=== PATIENT | male | born 1950 | race Caucasian/White ===

== ENCOUNTER → 2018-08-30 | Outpatient (CLI) | payer OTHER ==
[~2018-08-30] VITALS: Ht 180.3 cm; Wt 117.9 kg
[~2018-08-30] MED LIST: AMARYL2 MG PO; ATORVASTATIN CA40 MG PO; DICLOFENAC SODI75 MG PO; LISINOPRIL10 MG PO; MS CONTIN15 MG PO; NABUMETONE 500500 M1 PO; NORCO 5-325 TA1 EACH PO; TOPROL XL25 MG PO; TRAMADOL 50 MG50 MG PO
--- NOTE | ~2018-08-30 | HPC ---
[facility] [place] [address] PAIN MANAGEMENT CONSULTATION Name: REBECCA LARA A Room #: [facility] [id number] Admission: 08/30/18 Attend Phys: Lane Mario DO Discharge: Date of : 49 Report #: [id number] THIS REPORT FOR: //name// CC: Lane Blount MD DATE OF SERVICE: 08/30/2018 REFERRING PHYSICIAN: Octavio Blount M.D. CHIEF COMPLAINT: Right hip pain. HISTORY OF PRESENT ILLNESS: As you know, the patient is a 67-year-old male who reports acute onset of right hip pain. He indicates pain began 08/15/2018. The patient states that he sought evaluation through his referring physician who sent the patient to trial a right intraarticular hip injection under fluoroscopic guidance. The patient believes that he overdid it the days prior to his pain intensification. He has been subsequently referred to our clinic to trial an intra-articular hip injection. The patient indicates today his pain is improved with lying down. It tends to only bother when walking and standing. There is no pain in the seated position. His pain begins in the hip, radiates to just above the knee. He was prescribed Tylenol No. 3 but has yet to initiate this medication. The patient states that he has a history of osteoarthritis and believes this may be the source of his current symptoms. The patient reports today his pain is continuous, describes the pain as burning, shooting, aching and sharp, places current pain score 10/10, daily average at 10/10, worst pain has been is 10/10. The patient states pain is exacerbated with walking, standing, improves with lying down and seated position. The patient has been referred to our service to try a right intraarticular hip injection under fluoroscopic guidance to determine if his symptoms will be improved. PAST MEDICAL HISTORY: 1. Diabetes mellitus type 2. 2. Coronary artery disease, status post coronary artery bypass grafting. 3. Degenerative joint disease. 4. Osteoarthritis. 5. Hypertension. 6. Dyslipidemia. PAST SURGICAL HISTORY: 1. Coronary artery bypass grafting. 2. Stapedectomy. [facility] [address] [place] [address] PAIN MANAGEMENT CONSULTATION Name: REBECCA LARA [id number] Admission: 08/30/18 Attend Phys: Lane Mario DO Discharge: Date of : 49 Report #: [id number] 3. Appendectomy. 4. Cataract surgery. SOCIAL HISTORY: The patient denies tobacco, alcohol, IV or illicit drug use. 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 He is not currently working, has been out of work force for about 3 years. He is not receiving workmen's compensation nor is he trying to obtain disability benefits. He is not in litigation in regards to pain. He is unaccompanied at today's visit. REVIEW OF SYSTEMS: Positive for night sweats, fatigue and weakness, wearing corrective eyewear, cataracts, hearing loss with tinnitus, shortness of breath, walking or lying flat, heart trouble, nocturia, sexual difficulty, numbness and tingling sensations, diabetes mellitus type 2, right hip pain. All other review of systems negative per 12-point review of systems other than those listed in history of present illness. PAIN SCORE: Pain impact score 48/70 indicating moderate to near severe daily activity interference due to pain. ALLERGIES: PENICILLIN and SHIITAKE MUSHROOMS. CURRENT MEDICATIONS: Tramadol 50 mg every 4 hours p.r.n. for pain, metoprolol 25 mg once a day, lisinopril 10 mg once a day and atorvastatin 40 mg per day. IMAGING DATA: There is no imaging available. PQRS: The patient has known osteoarthritis, bilateral hips and low back and also bilateral knees. He does not suffer from rheumatoid arthritis. He is placing current pain score 10/10. He is not a fall risk and has not had a fall in the last 3 months. He is not on blood thinners. He is treated for hypertension. He is not on any opioids. He has a moderate risk for opioid addiction. He places functional pain impact score 48/70, moderate to severe. PHYSICAL EXAMINATION: VITAL SIGNS: Blood pressure 118/69, pulse of 97 and respiratory rate 18 and unlabored. The patient is 94% on room air. Height 5 feet 11 inches tall, weight 260 pounds and BMI calculated 36.3. GENERAL: Well-developed, well-nourished and well-hydrated, class 2, morbidly obese 67-year-old male appearing his stated age, placing current pain score 10/10. HEENT: Normocephalic and atraumatic. Pupils equal, round and reactive to light. Extraocular muscles are intact. Sclerae nonicteric without injection. NEUROLOGICAL: Cranial nerves 2 through 12 grossly intact. Speech is fluent. The patient deemed a fair historian. LUNGS: Decreased breath sounds bilaterally, prolonged expiratory phase. CARDIOVASCULAR: Regular. No appreciable gallop. No rub. [address] [address] PAIN MANAGEMENT CONSULTATION Name: REBECCA LARA Room #: REG TIFFANIE Delgado#: [id number] Admission: 08/30/18 Attend Phys: Lane Mario DO Discharge: Date of : 49 Report #: [id number] ABDOMEN: Soft, obese and normoactive bowel sounds. EXTREMITIES: Show no clubbing, no cyanosis and no edema. MUSCULOSKELETAL: Lower extremity strength is weakened bilaterally, likely due to deconditioning. Muscle bulk and tone is symmetrical in comparing left lower extremity over right. Seated straight leg raising negative. Supine straight leg raising negative. Soo's test is positive on the right. Modified Gaenslen's positive for some axial low back pain, no radiation of symptoms. Gait is antalgic favoring right lower extremity over left. Stance is noted to exacerbate pain as is ambulating. Seated position, improves pain. ASSESSMENT: 1. Right hip pain. 2. Right hip osteoarthritis. PLAN: 1. The patient has been referred to our service by Dr. Murrell and Dr. Octavio Blount for evaluation for right hip pain. The patient does show hip path pain with provocation testing as well as standing and ambulating. This would fit with a hip pathology. He does not have any radicular component to his symptoms concerning a lumbar radiculopathy. The patient and I discussed today treatment options for right hip pain. The following treatment options were provided to the patient as options to treat his symptoms. We discussed physical therapy, stretching exercises and a concerted effort at weight loss. We discussed medication management changes adding a nonsteroidal anti-inflammatory to the list of medications to take on a consistent basis to reduce inflammation and pain from osteoarthritis. We discussed intraarticular hip injections for which the patient was referred to our clinic and ultimately surgical options. After reviewing the risks and benefits of all proposed treatment options, the patient chose to undergo right intra-articular hip injection under fluoroscopic guidance. The patient was advised risks and benefits of a right intraarticular hip injection. These risks include but are not necessarily limited to bleeding, bruising, infection, worsening pain, no relief of pain, also risk of temporary or permanent muscle weakness, temporary or permanent nerve damage, possible joint destruction and . The patient states understood and wished to proceed. 2. No medication changes made at today's visit. The patient will continue current medical therapy as previously prescribed. 3. We will see the patient back in followup visit on an as needed basis for the next in the series of right intraarticular hip injections. 4. We wish to thank the referring physicians for the opportunity to see this patient in consultation. We will keep you apprised of his response to treatment as we address the right hip pain. Again, we wish to thank you for the opportunity to see the patient in consultation. [place] [address] PAIN MANAGEMENT CONSULTATION Name: JANEREBECCA Huynh Room #: REG CLZia Delgado#: [id number] Admission: 08/30/18 Attend Phys: Lane Mario DO Discharge: Date of : 49 Report #: [id number] DESCRIPTION OF PROCEDURE: Right intra-articular hip injection under fluoroscopic guidance. After obtaining written consent, the patient was taken back to the fluoroscopy suite, placed in supine position. The image intensifier (C-arm) was then brought into position over the right hip and AP imaging was obtained. The area just overlying the right hip was then prepped and draped in aseptic fashion using chlorhexidine. A sterile marker was then used to fatoumata the site of the injection. A 27-gauge 1-1/4 inch needle was then used to anesthetize skin and subcutaneous tissue with 2 mL of 1% lidocaine. A 22-gauge 3-1/2 inch spinal needle with bent tip was advanced into the right hip under fluoroscopic guidance. Needle was advanced until reaching the proximal head of the right femur. After placing the needle on the proximal head of the femur, the needle was then retracted approximately 1 mm and aspiration noted to be negative for heme. After negative aspiration for the heme, 1 mL of Omnipaque was injected demonstrating an excellent right hip arthrogram. After negative aspiration for heme, 4 mL of a solution containing 1 mL 40 mg per mL, 40 mg total triamcinolone and 3 mL of bupivacaine 0.5% was injected slowly. Needle was retracted correction, flushed with 1 mL of 1% lidocaine and removed. Sterile bandage placed over injection site. The patient tolerated the procedure well, carefully escorted to the recovery room in stable condition. There were no new motor deficits present in the lower extremity after the patient completed the procedure. After meeting our discharge criteria, the patient discharged home. By: [id number] Mario DO /nt
[2018-08-30 12:37] VITALS: BP 118/69
== END | disposition home or self-care (01) ==
LOC: PAIN 07:16
DX: M16.11 Unilateral primary osteoarthritis, right hip (principal); E11.9 Type 2 diabetes mellitus without complications; I25.10 Atherosclerotic heart disease of native coronary artery without angina pectoris; I10 Essential (primary) hypertension; E78.5 Hyperlipidemia, unspecified; H91.90 Unspecified hearing loss, unspecified ear; M17.0 Bilateral primary osteoarthritis of knee; E66.01 Morbid (severe) obesity due to excess calories; Z95.1 Presence of aortocoronary bypass graft; Z98.890 Other specified postprocedural states; Z90.49 Acquired absence of other specified parts of digestive tract; Z98.49 Cataract extraction status, unspecified eye; Z88.0 Allergy status to penicillin; Z91.018 Allergy to other foods; Z79.899 Other long term (current) drug therapy; Z68.36 Body mass index [BMI] 36.0-36.9, adult; Z87.891 Personal history of nicotine dependence

== ENCOUNTER → 2019-08-29 | Outpatient (CLI) | payer OTHER ==
[~2019-08-29] VITALS: Ht 180.3 cm; Wt 114.9 kg
[~2019-08-29] MED LIST changes: +JARDIANCE25 MG PO
[2019-08-29 11:16] VITALS: BP 104/57
--- NOTE | 2019-08-29 11:46 | NUR ---
Pain Clinic Assessment: 1. History of Osteoarthritis: Left Upper Extremity History of Rheumatoid Arthritis: Not Applicable 2. Height: 5 ft. 11 in. 180.3 cm. Weight: 253.4 lb. oz. 114.942 kg. Patient's BMI: 35.4 3. Vital Signs: BP: 104/57 Pulse: 86 Resp: 16 Temp: 02 Sat: 97 ECG Mon: 4. Pain Intensity: 3 STILL, 5 WITH MOVEMENT. 5. Fall Risk: Dizziness: N Needs help standing or walking: N Fallen in the last 3 months: N Fall risk comments: 6. Patient on Blood Thinner: None 7. History of Hypertension: Y 8. Opioid Therapy greater than 6 weeks: Y Opiate Contract Signed: 9. Risk Assessment Tool Provided: 10. Functional Assessment Tool: 11. Recreational Drug Use: Never Drug Type: Tobacco Use: Former Smoker Tobacco Type: Amount or Packs/day: How Many Years: Alcohol Use: No Frequency: Quant:
--- NOTE | 2019-09-05 12:48 | HPC ---
[facility] [place] [address] PAIN MANAGEMENT CONSULTATION Name: REBECCA LARA Room #: REG [facility].#: [id number] Admission: 08/29/19 Attend Phys: Lane Mario DO Discharge: Date of : 49 Report #: [id number] THIS REPORT FOR: //name// CC: Lane Blount MD DATE OF SERVICE: 08/29/2019 CHIEF COMPLAINT: Left shoulder pain. HISTORY OF PRESENT ILLNESS: As you know, the patient is an unfortunate 68-year-old male who has returned today in followup visit with now acute onset of left shoulder pain. The patient states pain is exacerbated with activity. He has no cervical radicular component to his symptoms. There is no neck symptoms and no neurologic descriptors in regards to pain. His shoulder pain is located directly in the left shoulder and again exacerbated with lifting and abduction of the shoulder itself. He has returned today in followup visit per the request of the referring physician to undergo an intra-articular shoulder injection. He has not followed up with Dr. Blount who is part of an [facility] for evaluation of his left shoulder. He is placing his pain score today at around 5/10 with movement. ALLERGIES: PENICILLIN. CURRENT MEDICATIONS: Jardiance 25 mg once a day, tramadol 50 mg every 4 hours p.r.n. for pain, metoprolol 25 mg once a day, lisinopril 10 mg once a day, atorvastatin 40 mg per day. SOCIAL HISTORY: The patient denies tobacco use. He is a reformed smoker, quit in 2001. Denies IV or illicit drug use. Denies any chronic alcohol use. He is retired, unaccompanied today. IMAGING: There is no imaging available. PQRS: The patient has arthritic changes of the left shoulder and right shoulder as well as lumbar spine. No rheumatoid arthritis. He is placing pain intensity today 5/10 with movement. He is not a fall risk, has not had a fall in last 3 months, not on blood thinners. He is treated for hypertension. He is on chronic opioid like medication in the form of tramadol. He is placing pain impact at 25/70, [id number] interference of daily activities secondary to pain. PHYSICAL EXAMINATION: VITAL SIGNS: Blood pressure 104/57, pulse 86, respiratory rate 16 and [facility] [address] [place] [address] PAIN MANAGEMENT CONSULTATION Name: REBECCA LARA Room #: REG [facility] MNaye.#: [id number] Admission: 08/29/19 Attend Phys: Lane Mario DO Discharge: Date of : 49 Report #: [id number] unlabored. The patient is 97% on room air. Height 5 feet 11 inches tall, weight 253.4 pounds, and BMI calculated 35.4. GENERAL: Well-developed, well-nourished, well-hydrated exogenously obese 68-year-old male appearing stated age, pain is rated around 5/10. HEENT: Normocephalic, atraumatic. Pupils equal, round, reactive to light. EXTREMITIES: Show no clubbing, no cyanosis, and no edema. MUSCULOSKELETAL: Provocating testing of the left shoulder shows increased pain, classic for rotator cuff injury and intrinsic arthritic changes of the shoulder. There is no noted crepitus with movement, though pain is elicited with both active and passive range of motion. Cervical spine testing is negative for Spurling's. ASSESSMENT: 1. Left shoulder pain. 2. Left shoulder osteoarthritis. 3. Left shoulder rotator cuff injury. PLAN: 1. The patient has returned today in followup visit per the request of the referring physician Dr. Octavio Blount for intra-articular left shoulder injection to address left shoulder pain secondary to movement. The patient and I discussed at length that there were changes noted in his examination which was consistent with rotator cuff injury, specifically with provocating testing. There is no lindsay weakness and I am not concerned of full thickness tears, though I believe there are enough changes that the patient may ultimately have to look toward surgical options. He returns today to undergo left intra-articular shoulder injection under fluoroscopic guidance. 2. The patient has been advised risks and benefits of left intra-articular shoulder injections. These risks include but are not necessarily limited to bleeding, bruising, infection, worsening pain, no relief of pain, also risk of temporary or permanent muscle weakness, temporary or permanent nerve damage, possible joint destruction and . The patient states understood and wished to proceed. 3. No medication changes made at today's visit. The patient will continue current medical therapy as previously prescribed. 4. The patient will follow up with his orthopedic team in regards to his left shoulder issues. If symptoms do not improve with the intra-articular shoulder injection for further evaluation. DESCRIPTION OF PROCEDURE: Left intra-articular shoulder injection under fluoroscopic guidance. After obtaining written consent, the patient was taken back to fluoroscopy suite, placed in a supine position. Image intensifier (C-arm) was brought into position over the left shoulder and AP imaging was obtained. The area overlying the injection was then prepped and draped in aseptic fashion using [address] [address] PAIN MANAGEMENT CONSULTATION Name: REBECCA LARA Room #: REG CLZia Delgado#: [id number] Admission: 08/29/19 Attend Phys: Lane Mario DO Discharge: Date of : 49 Report #: [id number] chlorhexidine. A sterile marker was then placed over the injection site prior to the 25-gauge 1-1/2 inch needle was used to anesthetize skin and subcutaneous tissue with 2 mL of 1% lidocaine. A 25-gauge 2-inch needle was then advanced under fluoroscopic guidance into the left shoulder under direct visualization. Needle was advanced until reaching the proximal head of the humerus. Needle was then retracted approximately 1 mm and aspiration noted to be negative for heme. After negative aspiration for heme, 0.5 mL of Omnipaque was injected demonstrating excellent left shoulder arthrogram. After negative aspiration for heme, 3 mL of a solution containing 1 mL 40 mg per mL, 40 mg total triamcinolone along with 2 mL bupivacaine 0.5% injected slowly. Needle then retracted alf, flushed with 1 mL of 1% lidocaine, then removed. Sterile bandage placed over injection site. There were no new motor deficits present in the left upper extremity following procedure. The patient tolerated the procedure well, carefully escorted to recovery room in stable condition. No apparent complications. After meeting discharge criteria, the patient discharged home. <ELECTRONICALLY SIGNED> By: Lane Mario DO 09/05/[id number] Mario, DO /nt
== END | disposition home or self-care (01) ==
LOC: PAIN 06:56
DX: M25.512 Pain in left shoulder (principal); M19.012 Primary osteoarthritis, left shoulder; M75.102 Unspecified rotator cuff tear or rupture of left shoulder, not specified as traumatic; I10 Essential (primary) hypertension; Z98.890 Other specified postprocedural states; Z88.0 Allergy status to penicillin; Z79.899 Other long term (current) drug therapy; Z87.891 Personal history of nicotine dependence; Z79.891 Long term (current) use of opiate analgesic

== ENCOUNTER → 2020-06-05 | Outpatient (CLI) | payer OTHER ==
[~2020-06-05] VITALS: Ht 180.3 cm; Wt 104.3 kg
--- NOTE | ~2020-06-05 | HPC ---
[facility] [place] [address] PAIN MANAGEMENT CONSULTATION Name: REBECCA LARA Room #: REG TIFFANIE MajorYennyAnastacioYenny#: [id number] Admission: 06/05/20 Attend Phys: Lane Mario DO Discharge: Date of : 49 Report #: [id number] THIS REPORT FOR: cc: Fabian Murrell MD, Ralph R. MD Johnson, James E. DO ~ CC: Lane Blount MD DATE OF SERVICE: 06/05/2020 REFERRING PHYSICIAN: Fabian Murrell MD CHIEF COMPLAINT: Left shoulder pain. HISTORY OF PRESENT ILLNESS: As you know, the patient is a 69-year-old male, returning in followup visit with ongoing left shoulder pain. The patient had done very well with previous intra-articular shoulder injection provided at our visit of 08/29/2019. He reported improvement in symptoms lasting for months. Unfortunately, his symptoms have begun to return. He returns today for the next in the series of left intra-articular shoulder injections under fluoroscopic guidance. ALLERGIES: PENICILLIN. CURRENT MEDICATIONS: See chart. SOCIAL HISTORY: The patient denies tobacco use. He is a reformed smoker, quit in 2001. Denies IV or illicit drug use. Denies any chronic alcohol use. He is unaccompanied today. IMAGING: No new imaging available. PQRS: The patient has known arthritic changes of the bilateral shoulders and lumbar spine. No rheumatoid arthritis. Pain intensity is reported anywhere from 5-7/10. He is not a fall risk nor has he had a fall in last 3 months. He is not on blood thinners, but is treated for hypertension. He has a low opioid addiction potential. Pain impact today . PHYSICAL EXAMINATION: GENERAL: Well-developed, well-nourished, well-hydrated 69-year-old male appearing stated age. He is in no acute distress HEENT: Normocephalic, atraumatic. Pupils equal, round, reactive to light. Speech fluent. [facility] [address] [place] [address] PAIN MANAGEMENT CONSULTATION Name: REBECCA LARA [facility]: [facility] [id number] Admission: 06/05/20 Attend Phys: Lane Mario DO Discharge: Date of : 49 Report #: [id number] EXTREMITIES: Show no clubbing, no cyanosis, no edema. MUSCULOSKELETAL: Active and passive range of motion of left shoulder is met with increasing pain. There are signs for classic for rotator cuff injury and intrinsic arthritic changes of the shoulder. Spurling's test is negative. There is some crepitus noted with movement of the left shoulder today. ASSESSMENT: 1. Left shoulder pain. 2. Left shoulder osteoarthritis. 3. Rotator cuff injury of the left shoulder. PLAN: 1. The patient returns today in followup visit requesting to undergo left intra-articular shoulder injection under fluoroscopic guidance. He reported excellent benefit with the injection from our last visit in August. He states he has been doing very well, but unfortunately just recently had a recurrence of symptoms. He made today's appointment to undergo next in the series of injections. The patient has been advised risks and benefits of the procedure, states understood and wished to proceed. 2. No medication changes made at today's visit. The patient will continue current medical therapy as previously prescribed. 3. We will see the patient back in followup visit on an as needed basis for the next in the series of intra-articular shoulder injections. We are pleased to see the patient has done well. We will see him back on an as needed basis. PROCEDURE NOTE DESCRIPTION OF PROCEDURE: Left intra-articular shoulder injection under fluoroscopic guidance. After obtaining written consent, the patient was taken back to fluoroscopy suite, placed in a supine position. The image intensifier (C-arm) was brought into position over the left shoulder and AP imaging was obtained. The area overlying the injection was then prepped and draped in aseptic fashion using chlorhexidine. A sterile marker was then used to place a fatoumata over the injection site prior to the introduction of a 27-gauge 1-1/4 inch needle to anesthetize skin and subcutaneous tissue with 2 mL of 1% preservative-free lidocaine. A 25-gauge 2-inch needle was then advanced under fluoroscopic guidance into the left shoulder. Needle was advanced until reaching the proximal head of the humerus. Needle was then retracted approximately 1 mm and aspiration noted to be negative for heme. After this, negative aspiration for heme, 4 mL of a solution containing 1 mL 40 mg per mL, 40 mg total triamcinolone along with 3 mL bupivacaine 0.5% was injected slowly. Needle retracted approximately half way, flushed with 1 mL of 1% lidocaine and removed. Sterile bandage placed over [address] [address] PAIN MANAGEMENT CONSULTATION Name: REBECCA LARA Room #: REG TIFFANIE Delgado#: [id number] Admission: 06/05/20 Attend Phys: Lane Mario DO Discharge: Date of : 49 Report #: [id number] injection site. There were no new motor deficits present in the upper extremity following procedure. The patient tolerated procedure well, carefully escorted to recovery room in stable condition. No apparent complications. After meeting discharge criteria, the patient discharged home. By: [id number] Mario DO /nt
[2020-06-05 13:10] VITALS: BP 102/59
--- NOTE | 2020-06-05 13:23 | NUR ---
Pain Clinic Assessment: 1. History of Osteoarthritis: Left Upper Extremity History of Rheumatoid Arthritis: DENIES 2. Height: 5 ft. 11 in. 180.3 cm. Weight: 230.0 lb. oz. 104.328 kg. Patient's BMI: 32.1 3. Vital Signs: BP: 102/59 Pulse: 82 Resp: 18 Temp: 02 Sat: 96 ECG Mon: 4. Pain Intensity: 5 5. Fall Risk: Dizziness: N Needs help standing or walking: N Fallen in the last 3 months: N Fall risk comments: 6. Patient on Blood Thinner: None 7. History of Hypertension: Y 8. Opioid Therapy greater than 6 weeks: N Opiate Contract Signed: 9. Risk Assessment Tool Provided: 10. Functional Assessment Tool: 11. Recreational Drug Use: Never Drug Type: Tobacco Use: Former Smoker Tobacco Type: Amount or Packs/day: How Many Years: Alcohol Use: No Frequency: Quant:
== END | disposition home or self-care (01) ==
LOC: PAIN 07:02
PROVIDERS: ATTEND Anesthesiology Pain Medicine
DX: M25.552 Pain in left hip (principal); M16.12 Unilateral primary osteoarthritis, left hip; Z79.899 Other long term (current) drug therapy; Z88.8 Allergy status to other drugs, medicaments and biological substances

== ENCOUNTER → 2020-08-13 | Outpatient (CLI) | payer OTHER ==
[~2020-08-13] VITALS: Ht 180.3 cm; Wt 109.7 kg
--- NOTE | ~2020-08-13 | HPC ---
[facility] [address] [place] [address] PAIN MANAGEMENT CONSULTATION Name: REBECCA LARA Room #: REG [facility]#: [id number] Admission: 08/13/20 Attend Phys: Lane Mario DO Discharge: Date of : 48 Report #: [id number] CC: Lane Murrell DATE OF SERVICE: 08/13/2020 REFERRING PHYSICIAN: Dr. Fabian Murrell. CHIEF COMPLAINT: Right hip pain. HISTORY OF PRESENT ILLNESS: As you know, the patient is a 69-year-old male who returns today in followup visit, requesting to undergo right intraarticular hip injection under fluoroscopic guidance. The patient reports previous injection gave excellent benefit up to 60% improvement in overall pain till just recently where he has had a slow and progressive return of symptoms. He returns today in followup visit, requesting right intraarticular hip injection to address right hip osteoarthritic pain. The patient denies injury or trauma that may have led to symptom development. ALLERGIES: PENICILLIN. CURRENT MEDICATIONS: See chart. SOCIAL HISTORY: The patient denies tobacco use. He is a reformed smoker, quit in 2001. Denies IV or illicit drug use. Denies any chronic alcohol use. He is unaccompanied at today's visit. IMAGING: No new imaging available. PQRS: The patient has known arthritic changes of the bilateral shoulders and lumbar spine; bilateral hips, right greater than left. No rheumatoid arthritis. He is placing his pain intensity today at 4/10. He is not a fall risk nor has he had a fall in last 3 months. He is not on blood thinners, but is treated for hypertension. He is not on chronic opioids, has a low opiate addiction potential based on our assessment tool. Pain impact is 33 of 70, moderate interference of daily activities secondary to pain. PHYSICAL EXAMINATION: VITAL SIGNS: Blood pressure 100/57, pulse 83, respiratory rate 16 and unlabored. The patient is 98% on room air. Height 5 feet 11 inches tall, weight 241.8 pounds, BMI calculated 33.7. GENERAL: Well-developed, well-nourished, well-hydrated exogenously obese 69-year-old male, appearing stated age. Pain is rated today at 4/10. HEENT: Normocephalic, atraumatic. Pupils equal, round, and reactive. Speech fluent for the patient. EXTREMITIES: Show no clubbing, no cyanosis. No appreciable edema. MUSCULOSKELETAL: Lower extremity strength appears symmetrical. Some giveaway strength noted with hip flexion on the right when compared to left. This was due to pain generation. Standing from seated position exacerbates symptoms of right hip pain, negative left. Seated straight leg raising negative. Supine straight leg raising negative. Soo's test positive on the right. ASSESSMENT: 1. Right hip pain. 2. Right hip osteoarthritis. PLAN: 1. The patient returns today in followup visit, requesting to undergo right intraarticular hip injection under fluoroscopic guidance. He reported excellent benefit with previous right hip injection, which was performed on 08/30/2018. Unfortunately, his symptoms have begun to return. He has returned today to undergo right intraarticular hip injection under fluoroscopic guidance. He denies injury or trauma. The patient has been advised of risks and benefits of a right intraarticular hip injection. These risks include, but are not necessarily limited to bleeding, bruising, infection, worsening pain, no relief of pain, also risk of temporary or permanent muscle weakness, temporary or permanent nerve damage, possible paralysis, and . The patient states understood and wished to proceed. 2. No medication changes made at today's visit. The patient will continue current medical therapy as prior prescribed. 3. We will see the patient back in followup visit on an as needed basis for possible next in a series of right intraarticular hip injections. We are hopeful the patient will see good and prolonged benefit with this intraarticular hip injection as we have seen with the previous. DESCRIPTION OF PROCEDURE: Right intraarticular hip injection under fluoroscopic guidance. After obtaining written consent, the patient was taken back to fluoroscopy suite, placed in a supine position. The image intensifier (C-arm) was then brought into position over the right hip and AP imaging was obtained. The area overlying the site of injection was marked and then, sterilely prepped and draped with chlorhexidine. A 27-gauge 1-1/4-inch needle was then used to anesthetize skin and subcutaneous tissue with 2 mL of 1% lidocaine. A 22-gauge 3-1/2-inch spinal needle with bent tip was advanced into the right hip under fluoroscopic guidance. Needle was advanced until reaching the proximal head of the right femur. Needle was then retracted approximately 1 mm and aspiration was then noted to be negative for heme. After negative aspiration for heme, 1 mL of Omnipaque was injected, demonstrating an excellent right hip arthrogram. After negative aspiration for heme, 4 mL of a solution containing 1 mL 40 mg per mL, 40 mg total triamcinolone along with 3 mL of bupivacaine 0.5% was injected slowly. Needle was retracted long term, flushed with 1 mL of 1% lidocaine, and then removed. Sterile bandage was placed over injection site. There were no new motor deficits present in the lower extremities following procedure. The patient tolerated procedure well, carefully escorted to recovery room in stable condition. No apparent complications. After meeting discharge criteria, the patient discharged home. By: [id number] DO /nt
[2020-08-13 08:57] VITALS: BP 100/57
--- NOTE | 2020-08-13 09:07 | NUR ---
Pain Clinic Assessment: 1. History of Osteoarthritis: Left Upper Extremity History of Rheumatoid Arthritis: DENIES 2. Height: 5 ft. 11 in. 180.3 cm. Weight: 241.8 lb. oz. 109.680 kg. Patient's BMI: 33.7 3. Vital Signs: BP: 100/57 Pulse: 83 Resp: 16 Temp: 02 Sat: 98 ECG Mon: 4. Pain Intensity: 4 5. Fall Risk: Dizziness: N Needs help standing or walking: N Fallen in the last 3 months: N Fall risk comments: 6. Patient on Blood Thinner: None 7. History of Hypertension: Y 8. Opioid Therapy greater than 6 weeks: N Opiate Contract Signed: 9. Risk Assessment Tool Provided: 10. Functional Assessment Tool: 11. Recreational Drug Use: Never Drug Type: Tobacco Use: Former Smoker Tobacco Type: Amount or Packs/day: How Many Years: Alcohol Use: No Frequency: Quant:
== END | disposition home or self-care (01) ==
LOC: PAIN 06:47
PROVIDERS: ATTEND Anesthesiology Pain Medicine
DX: M25.551 Pain in right hip (principal); M16.11 Unilateral primary osteoarthritis, right hip; I10 Essential (primary) hypertension; M19.90 Unspecified osteoarthritis, unspecified site; Z98.890 Other specified postprocedural states; Z79.899 Other long term (current) drug therapy; Z87.891 Personal history of nicotine dependence; Z88.0 Allergy status to penicillin

== ENCOUNTER → 2021-03-18 | Outpatient (CLI) | payer OTHER ==
[~2021-03-18] VITALS: Ht 180.3 cm; Wt 106.9 kg
[2021-03-18 09:18] VITALS: BP 108/57
--- NOTE | 2021-03-18 09:26 | NUR ---
Pain Clinic Assessment: 1. History of Osteoarthritis: Left Upper Extremity History of Rheumatoid Arthritis: DENIES 2. Height: 5 ft. 11 in. 180.3 cm. Weight: 235.6 lb. oz. 106.868 kg. Patient's BMI: 32.9 3. Vital Signs: BP: 108/57 Pulse: 85 Resp: 16 Temp: 02 Sat: 97 ECG Mon: 4. Pain Intensity: 9 5. Fall Risk: Dizziness: N Needs help standing or walking: N Fallen in the last 3 months: N Fall risk comments: 6. Patient on Blood Thinner: None 7. History of Hypertension: Y 8. Opioid Therapy greater than 6 weeks: N Opiate Contract Signed: 9. Risk Assessment Tool Provided: 10. Functional Assessment Tool: 11. Recreational Drug Use: Never Drug Type: Tobacco Use: Former Smoker Tobacco Type: Amount or Packs/day: How Many Years: Alcohol Use: No Frequency: Quant:
--- NOTE | 2021-03-19 08:22 | HPC ---
[facility] [place] [address] PAIN MANAGEMENT CONSULTATION Name: REBECCA LARA Room #: REG TIFFANIE Sandy#: [id number] Admission: 03/18/21 Attend Phys: Lane Mario DO Discharge: Date of : 48 Report #: [id number] THIS REPORT FOR: cc: Fabian Murrell MD, Ralph R. MD Johnson, James E. DO ~ DOC #: [id number] Lane Mario DO DATE OF SERVICE: 03/18/2021 CHIEF COMPLAINT: Left shoulder pain. HISTORY OF PRESENT ILLNESS: As you know, the patient is a pleasant 70-year-old male with recurrence of left shoulder pain. He describes the pain as sharp, burning and aching places current pain score at 9/10. He reports good efficacy with the previous intraarticular shoulder injection near 100% improvement in overall pain. He returns today requesting next in the series of left shoulder injections in hopes of improving symptoms. He underwent an intraarticular hip injection at our last visit, which gave only transient improvement in symptoms. Unfortunately, his symptoms returned quite quickly. He is being evaluated for a total hip arthroplasty at this point. He returns to undergo a left intra-articular shoulder injection under fluoroscopic guidance in hopes of improving pain. He states pain is exacerbated with movement, improves with repositioning, and previous injections. ALLERGIES: PENICILLIN AND SHIITAKE MUSHROOM. CURRENT MEDICATIONS: Jardiance, Ultram, metoprolol, lisinopril, and atorvastatin. SOCIAL HISTORY: The patient denies tobacco use. He is a former smoker, quit in 2001. Denies IV or illicit drug use. Denies any chronic alcohol use. He is unaccompanied at today's visit. IMAGING: No new imaging available. PQRS: The patient has known arthritic changes of bilateral shoulders, lumbar spine, bilateral hips, right greater than left. No rheumatoid arthritis, placing current pain score at 9/10. He is not a fall risk, has not had a fall in the last 3 months. He is not on blood thinners, but is treated for hypertension. He is not on chronic opioids and has a low opiate addiction potential. Pain impact is 33/70, moderate interference of daily activities secondary to pain. PHYSICAL EXAMINATION: VITAL SIGNS: Blood pressure 108/57, pulse 85, respiratory rate 16 and unlabored. The patient is 97% on room air. Height 5 feet 11 inches tall, [facility] [address] [place] [address] PAIN MANAGEMENT CONSULTATION Name: REBECCA LARA A [id number] Admission: 03/18/21 Attend Phys: Lane Mario DO Discharge: Date of : 48 Report #: [id number] weight 235.6 pounds, BMI calculated 32.9. GENERAL: Well-developed, well-nourished, well-hydrated 70-year-old male, appears his stated age. He is in no acute distress. Awake, alert and oriented x3. Pain is rated at 9/10. HEENT: Normocephalic, atraumatic. Pupils are round. Extraocular muscles are intact. Speech is fluent. The patient is in a mask due to COVID-19 regulations. EXTREMITIES: Show no clubbing, no cyanosis, no edema. MUSCULOSKELETAL: Upper extremity strength appears symmetrical 5/5. There is pain elicited with active and passive range of motion of the left shoulder. There is no lindsay crepitus noted with movement. Muscle strength appears normal in the upper extremities, intact to light touch from C5 through T1 dermatomes. ASSESSMENT: 1. Left shoulder pain. 2. Left shoulder osteoarthritis. PLAN: 1. The patient returns today in followup visit to address left shoulder pain. He has done very well with previous intra-articular shoulder injection, which was provided in June of 2020. He states he has been doing very well until just recently. 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 He is also taking care of his 95-year-old mother. He states the combination causes him to have to do most of daily activities including cooking, cleaning and keeping the house as well as driving. He states this is what has exacerbated his left shoulder symptoms. He returns today to undergo intra-articular shoulder injection under fluoroscopic guidance. The patient has been advised of the risks and benefits of the procedure and states he understood and wished to proceed. 2. No medication changes made at today's visit. The patient will continue current medical therapy as prior prescribed. 3. We will see the patient back in followup visit on an as needed basis for the next in the series of left intra-articular shoulder injections. We are hopeful he will once again see good and prolonged benefit with today's procedure. PROCEDURE NOTE DESCRIPTION OF PROCEDURE: Left intra-articular shoulder injection under fluoroscopic guidance. After obtaining written consent, the patient was taken back to fluoroscopy suite, placed in a supine position. The image intensifier (C-arm) was then brought into position over the left shoulder and AP imaging was obtained. The area overlying the injection was then prepped and draped in aseptic fashion using chlorhexidine. A sterile marker was then used to fatoumata the area of the [facility] [address] [place] [address] PAIN MANAGEMENT CONSULTATION Name: REBECCA LARA Room #: REG [facility]#: [id number] Admission: 03/18/21 Attend Phys: Lane Mario DO Discharge: Date of : 48 Report #: [id number] injection site prior to the introduction of a 27-gauge 1-1/4 inch needle to anesthetize skin and subcutaneous tissue with 3 mL of 1% preservative-free lidocaine. A 25-gauge 2-inch needle was then advanced under fluoroscopic guidance into the left shoulder. Needle was advanced until touching the proximal head of the humerus. Needle was then retracted approximately 1 mm and aspiration noted to be negative for heme. After this negative aspiration for heme, 4 mL of solution containing 1 mL 40 mg per mL 40 mg total triamcinolone along with 3 mL bupivacaine 0.5% was injected slowly. Needle retracted at residential flushed with 1 mL of 1% lidocaine, then removed. Sterile bandage placed over injection site. No new motor deficits present in the upper extremity following procedure. Patient tolerated the procedure well, carefully escorted to recovery room in stable condition. No apparent complications. After meeting discharge criteria, the patient discharged home. DO JAILYN Golden/SHARON <ELECTRONICALLY SIGNED> By: Lane Mario DO 03/19/[id number] Mario DO /nt
== END | disposition home or self-care (01) ==
LOC: PAIN 07:26
PROVIDERS: ATTEND Anesthesiology Pain Medicine
DX: M25.512 Pain in left shoulder (principal); M19.012 Primary osteoarthritis, left shoulder; G89.29 Other chronic pain; I10 Essential (primary) hypertension; M19.90 Unspecified osteoarthritis, unspecified site; Z98.890 Other specified postprocedural states; Z79.899 Other long term (current) drug therapy; Z88.0 Allergy status to penicillin; Z88.8 Allergy status to other drugs, medicaments and biological substances; Z87.891 Personal history of nicotine dependence

== ENCOUNTER → 2021-10-21 | Outpatient (CLI) | payer OTHER ==
[~2021-10-21] VITALS: Ht 180.3 cm; Wt 112.0 kg
[~2021-10-21] MED LIST changes: +IBUPROFEN IB200 MG PO
[2021-10-21 14:26] VITALS: BP 110/65
--- NOTE | 2021-10-21 14:44 | NUR ---
Pain Clinic Assessment: 1. History of Osteoarthritis: Left Upper Extremity History of Rheumatoid Arthritis: DENIES 2. Height: 5 ft. 11 in. 180.3 cm. Weight: 247.0 lb. oz. 112.039 kg. Patient's BMI: 34.5 3. Vital Signs: BP: 110/65 Pulse: 88 Resp: 20 Temp: 02 Sat: 97 ECG Mon: 4. Pain Intensity: 1 AT REST; 10 REACHING 5. Fall Risk: Dizziness: N Needs help standing or walking: N Fallen in the last 3 months: N Fall risk comments: 6. Patient on Blood Thinner: None 7. History of Hypertension: Y 8. Opioid Therapy greater than 6 weeks: N Opiate Contract Signed: 9. Risk Assessment Tool Provided: 10. Functional Assessment Tool: 11. Recreational Drug Use: Never Drug Type: Tobacco Use: Former Smoker Tobacco Type: Amount or Packs/day: How Many Years: Alcohol Use: No Frequency: Quant:
--- NOTE | 2021-10-22 07:55 | HPC ---
[facility] [place] [address] PAIN MANAGEMENT CONSULTATION Name: REBECCA LARA Room #: REG TIFFANIE [facility]#: [id number] Admission: 10/21/21 Attend Phys: Lane Mario DO Discharge: Date of : 48 Report #: [id number] THIS REPORT FOR: cc: Fabian Murrell MD, Ralph R. MD Johnson, James E. DO ~ cc: Fabian Murrell MD DATE OF SERVICE: 10/21/2021 REFERRING PHYSICIAN: Dr. Fabian Murrell CHIEF COMPLAINT: Left shoulder pain, right hip pain. HISTORY OF PRESENT ILLNESS: As you know, the patient is a pleasant 70-year-old male who returns today in followup visit with recurrence of left shoulder pain. He underwent an intraarticular shoulder injection in 03/2021, reporting excellent benefit with that intra-articular shoulder injection. In fact, he was able to participate in all activities of daily living without significant pain interference for the past 6 months. He reports a 75% improvement in overall pain with that injection. He returns today in followup visit requesting to undergo left intra-articular shoulder injection and to address right chronic hip pain for which he places pain at about 8/10 depending on position when standing and walking. He returns requesting a left intra-articular shoulder injection and a right intraarticular hip injection. The patient denies injury or trauma to either of the areas. There has been no changes in the patient's medication management that would preclude him from undergoing an injection today. ALLERGIES: PENICILLIN AND SHIITAKE MUSHROOMS. CURRENT MEDICATIONS: Atorvastatin 40 mg once a day, lisinopril 10 mg once a day, metoprolol 25 mg once a day, tramadol 50 mg p.r.n., ibuprofen 200 mg t.i.d. SOCIAL HISTORY: The patient denies tobacco use. He is a former smoker, quit in 2001. Denies IV or illicit drug use. Denies any chronic alcohol use. He is unaccompanied at today's visit. IMAGING: No new imaging available. PQRS: The patient has known arthritic changes of bilateral shoulders, lumbar spine, bilateral hips, right greater than left, and bilateral knees. No rheumatoid arthritis. He is placing pain intensity today at 1/10 at rest up to 8/10 with ambulation. He is not a fall risk, has not had a fall in last 3 months. He is not on blood thinners, but he is treated for hypertension. He is on opioid medication, but has a low opioid addiction potential based on our assessment tool. Pain impact is 33/70, moderate interference of daily activities secondary to pain. [address] [address] PAIN MANAGEMENT CONSULTATION Name: JANEADAIR Room #: REG [facility]#: [id number] Admission: 10/21/21 Attend Phys: Lane Mario DO Discharge: Date of : 48 Report #: [id number] PHYSICAL EXAMINATION: VITAL SIGNS: Blood pressure 110/65, pulse is 88, respiratory rate 20, unlabored. The patient is 97% on room air. Height 5 feet 11 inches tall, weight 247 pounds, BMI calculated 34.5. GENERAL: Well-developed, well-nourished, well-hydrated exogenously obese 70-year-old male, appearing stated age, pain is rated today anywhere from 1-8/10 depending on activity. HEENT: Normocephalic, atraumatic. Pupils are round. He is wearing a mask in compliance with [facility] regulations and hospital policies. EXTREMITIES: Show no clubbing, no cyanosis, no edema. MUSCULOSKELETAL: Upper extremity strength appears symmetrical 5/5. There is giveaway strength noted due to left shoulder pain with biceps flexion as well as shoulder abduction. Range of motion of the left shoulder is met with both in passive and active range of motion pain. Muscle strength appears symmetrical. He is intact to light touch. Active and passive range of motion of the right hip is met with increased pain. There is no lindsay crepitus. Standing from a seated position exacerbates right hip symptoms. ASSESSMENT: 1. Left shoulder pain. 2. Left shoulder osteoarthritis. 3. Right hip pain. 4. Right hip osteoarthritis. 5. Chronic intractable pain. PLAN: 1. The patient returns today in followup visit to undergo a right hip intraarticular injection as well as a left shoulder intraarticular injection. We made today's appointment for the patient to undergo both as this will simplify his return to our clinic. The patient has been advised the risks and benefits of each of these intraarticular injection states he understood and wished to proceed. 2. No medication changes made at today's visit. He will continue current medical therapy as prior prescribed. 3. We plan to see the patient back in followup visit on an as needed basis. I am hopeful the patient once again see good and prolonged benefit with the intraarticular shoulder injection and good improvement in symptoms with his right intraarticular hip injection. PROCEDURE NOTE DESCRIPTION OF PROCEDURE: Left intraarticular shoulder injection under fluoroscopic guidance. After obtaining written consent, the patient was taken back to fluoroscopy [address] [address] PAIN MANAGEMENT CONSULTATION Name: REBECCA LARA Room #: REG TIFFANIE Delgado#: [id number] Admission: 10/21/21 Attend Phys: Lane Mario DO Discharge: Date of : 48 Report #: [id number] suite, placed in supine position. The image intensifier (C-arm) was then brought into position over the left shoulder and AP imaging was obtained. The overlying area was prepped and draped in aseptic fashion using chlorhexidine. A 27-gauge 1-1/4-inch needle was then used to anesthetize skin and subcutaneous tissue with 2 mL of preservative-free 1% lidocaine. A 25-gauge 2-inch needle was then advanced under fluoroscopic guidance into the left shoulder joint. Needle was advanced until touching the proximal head of the humerus. Needle was then retracted approximately 1 mm and aspiration noted to be negative for heme. After negative aspiration for heme, 4 mL of a solution containing 1 mL 40 mg per mL, 40 mg total triamcinolone along with 3 mL of bupivacaine 0.5% was injected slowly. Needle retracted half-way flushed with 1 mL of 1% lidocaine, then removed. Sterile bandage placed over injection site. There were no new motor deficits present in the upper extremity following procedure. PROCEDURE NOTE DESCRIPTION OF PROCEDURE: Right intraarticular hip injection under fluoroscopic guidance. The patient was remaining in a supine position after undergoing the left intraarticular shoulder injection. Image intensifier was then brought into position over the right hip and AP imaging was obtained. The area overlying the right hip was then sterilely prepped with chlorhexidine. A 27-gauge 1-1/4-inch needle was then used to anesthetize skin and subcutaneous tissue with 2 mL of preservative-free 1% lidocaine. A 20-gauge 3-1/2 inch spinal needle with bent tip was directed to the superior aspect of the right humeral head. Needle was advanced until reaching the humeral head, then retracted approximately 1 mm. After negative aspiration for heme, 5 mL of a solution containing 1 mL 40 mg per mL, 40 mg total triamcinolone and 4 mL of bupivacaine 0.5% injected slowly. Needle retracted half-way, flushed with 1 mL of 1% lidocaine then removed. Sterile bandage placed over injection site. There were no new motor deficits present in the right lower extremity following procedure. The patient tolerated both procedures well, carefully escorted to recovery room in stable condition. No apparent complications. After meeting discharge criteria, the patient discharged home. <ELECTRONICALLY SIGNED> By: Lane Mario DO 10/22/[id number] Mario DO /nt
== END | disposition home or self-care (01) ==
LOC: PAIN 10:51
PROVIDERS: ATTEND Anesthesiology Pain Medicine
DX: M25.512 Pain in left shoulder (principal); M25.551 Pain in right hip; M19.012 Primary osteoarthritis, left shoulder; M16.11 Unilateral primary osteoarthritis, right hip; G89.29 Other chronic pain; I10 Essential (primary) hypertension; M19.90 Unspecified osteoarthritis, unspecified site; Z98.890 Other specified postprocedural states; Z79.899 Other long term (current) drug therapy; Z79.891 Long term (current) use of opiate analgesic